=== PATIENT | male | born 1955 | race Caucasian/White ===

== ENCOUNTER 2019-10-10 08:54 | Day surgery (SDC) | payer BC ==
[2019-10-06 12:50] VITALS: BMI 32.5
[2019-10-10] MEDS ORDERED: PROPOFOL 20 ML ONE ×3 (09:22)
[2019-10-10] MEDS ORDERED: LIDOCAINE HCL/PF 2% SDV 5ML VIAL ONE (09:22)
[2019-10-10 10:01] VITALS: TEMP 98.3
[2019-10-10 11:35] VITALS: BP 116/67; PULSE 66
--- NOTE | 2019-10-11 16:13 | PATH ---
Surgical Pathology Report Patient Name: ROSA HOOK [facility]. Rec. #: [id number] /Age/Gender: 1955 (Age: 64) / M Account: [id number] Location: [facility] Taken: 10/10/2019 Received: 10/10/2019 Reported: 10/11/2019 Physicians: Catrachito Nayak M.D. Specimen(s) Received A: POLYP ASCENDING COLON B: POLYP # 2 ASCENDING COLON C: POLYP # 3 ASCENDING COLON D: POLYP X 3 TRANSVERSE COLON E: POLYP DESCENDING COLON F: RECTAL POLYP Clinical History Polyps, diverticulosis Postoperative diagnosis: Diverticulosis, multiple polyps Final Diagnosis A. ASCENDING COLON, POLYP, POLYPECTOMY: SESSILE SERRATED POLYP. B. ASCENDING COLON, POLYP #2, POLYPECTOMY: SESSILE SERRATED POLYP. C. ASCENDING COLON, POLYP #3, POLYPECTOMY: TUBULAR ADENOMA. D. TRANSVERSE COLON, POLYP X3, POLYPECTOMY: TUBULAR ADENOMA, FRAGMENTS. E. DESCENDING COLON, POLYP, POLYPECTOMY: TUBULAR ADENOMA. F. RECTAL POLYP, BIOPSY: SESSILE SERRATED POLYP. HYPERPLASTIC POLYP. Electronically Signed Reyan Liz M.D. Gross Description A. Received in formalin, labeled "polyp ascending colon" are 5 brooke, irregular portions of soft tissue ranging from 0.2-0.7 cm. in greatest dimension. The specimens are submitted in toto in one cassette. B. Received in formalin, labeled "polyp #2 ascending colon" is a brooke, polypoid portion of soft tissue measuring 0.7 cm. in greatest dimension. The specimen is submitted in toto in one cassette. C. Received in formalin, labeled "polyp #3 ascending colon" are 3 brooke, irregular portions of soft tissue averaging 0.1 cm. in greatest dimension. The specimens are submitted in toto in one cassette. D. Received in formalin labeled "polyp x3 transverse colon," is a 1.6 x 1.3 x 0.3 cm aggregate of brooke, irregular to polypoid portions of soft tissue. The specimen is entirely submitted in one cassette. E. Received in formalin, labeled "polyp descending colon" is a brooke, irregular portion of soft tissue measuring 0.4 cm. in greatest dimension. The specimen is submitted in toto in one cassette. F. Received in formalin, labeled "rectal polyp" are 2 brooke, irregular portions of soft tissue measuring 0.2 and 0.3 cm. in greatest dimension. The specimens are submitted in toto in one cassette. 10/10/2019 [facility]/10/2019
== END 2019-10-10 11:45 | disposition home or self-care (01) ==
LOC: FASU-ENDO 08:54
PROVIDERS: ATTEND Internal Medicine Gastroenterology
PROC: 0DBL8ZX Excision of Transverse Colon, Via Natural or Artificial Opening Endoscopic, Diagnostic (ICD-10-PCS; 2019-10-10)
PROC: 0DBK8ZX Excision of Ascending Colon, Via Natural or Artificial Opening Endoscopic, Diagnostic (ICD-10-PCS; 2019-10-10)
PROC: 0DBL8ZX Excision of Transverse Colon, Via Natural or Artificial Opening Endoscopic, Diagnostic (ICD-10-PCS; 2019-10-10)
PROC: 0DBP8ZX Excision of Rectum, Via Natural or Artificial Opening Endoscopic, Diagnostic (ICD-10-PCS; 2019-10-10)
PROC: 0DBK8ZX Excision of Ascending Colon, Via Natural or Artificial Opening Endoscopic, Diagnostic (ICD-10-PCS; principal; 2019-10-10 10:00)
DX: Z86.010 Personal history of colon polyps (principal); Z80.0 Family history of malignant neoplasm of digestive organs; D12.2 Benign neoplasm of ascending colon; D12.3 Benign neoplasm of transverse colon; K62.1 Rectal polyp; K57.30 Diverticulosis of large intestine without perforation or abscess without bleeding; K64.8 Other hemorrhoids
CPT/HCPCS: 88305-TC